=== PATIENT | female | born 1965 | race Caucasian/White ===

== ENCOUNTER → 2019-06-22 | Outpatient (CLI) | payer BC ==
[~2019-06-22] MED LIST: Flovent Diskus50 MCG IH; LEVSOD88 PO; LORA10 PO; METO25ER PO; Omeprazole20 M1; SERT25 PO; TRIHYD253B PO
[2019-06-24 15:07] LABS: HPV 16 Negative (Negative); HPV 18 Negative (Negative); HPV OTHER HR TYPES Negative (Negative)
== END | disposition home or self-care (01) ==
LOC: LAB SHORT 11:42 → LAB 11:42
PROVIDERS: Obstetrics & Gynecology
DX: Z01.419 Encounter for gynecological examination (general) (routine) without abnormal findings (principal)
CPT/HCPCS: 87624; G0123

== ENCOUNTER → 2020-01-26 | Outpatient (CLI) | payer BC | END | disposition home or self-care (01) | LOC: PLD 11:18 → LAB SHORT 11:18 | DX: C44.311 Basal cell carcinoma of skin of nose (principal); L73.8 Other specified follicular disorders | CPT/HCPCS: 88305 ==

== ENCOUNTER → 2020-04-16 | Outpatient (CLI) | payer BC | END | disposition home or self-care (01) | LOC: LAB SHORT 12:30 → LAB 12:30 | DX: L08.0 Pyoderma (principal) | CPT/HCPCS: 87070; 87205 ==

== ENCOUNTER → 2020-10-29 | Outpatient (CLI) | payer BC | END | disposition home or self-care (01) | LOC: LAB SHORT 12:12 → PLD 12:12 | DX: D48.5 Neoplasm of uncertain behavior of skin (principal) | CPT/HCPCS: 88305 ==

== ENCOUNTER 2023-01-30 07:20 | Day surgery (SDC) | payer OTHER ==
[~2023-01-30] VITALS: Ht 167.6 cm; Wt 97.4 kg
[2023-01-30] MEDS ORDERED: PANT20 (07:38)
[2023-01-30] MEDS ORDERED: ESCI10 (07:38)
[2023-01-30] MEDS ORDERED: ROSU5 (07:38)
[2023-01-30] MEDS ORDERED: FINASTERIDE1 MG (07:39)
[2023-01-30] MEDS ORDERED: METF500 (07:39)
[2023-01-30] MEDS ORDERED: Naltrexone HCl50 MG (07:40)
== END 2023-01-30 09:29 | disposition home or self-care (01) ==
LOC: ORSCSDS 07:20
PROVIDERS: Internal Medicine Gastroenterology
PROC: 0DBL8ZX Excision of Transverse Colon, Via Natural or Artificial Opening Endoscopic, Diagnostic (ICD-10-PCS; principal; 2023-01-30 08:30)
DX: Z12.11 Encounter for screening for malignant neoplasm of colon (principal); Z86.010 Personal history of colon polyps; Z83.71 Family history of colonic polyps; D12.3 Benign neoplasm of transverse colon; E78.5 Hyperlipidemia, unspecified; I10 Essential (primary) hypertension; E03.9 Hypothyroidism, unspecified; Z79.899 Other long term (current) drug therapy
CPT/HCPCS: 88305; C1889; J2250; J2704; J7120

== ENCOUNTER → 2024-09-06 | Outpatient (CLI) | payer OTHER ==
[~2024-09-06] MED LIST changes: +ESCI10; +FINASTERIDE1 MG; +METF500; +Naltrexone HCl50 MG; +PANT20; +ROSU5
[2024-09-14 07:15] LABS: HPV HIGH RISK BY TMA Not Detected; HPV SOURCE Cervical/Vag
== END ==
LOC: LAB 15:57 → LAB SHORT 15:57
PROVIDERS: Obstetrics & Gynecology
DX: Z01.419 Encounter for gynecological examination (general) (routine) without abnormal findings (principal)
CPT/HCPCS: 87624; G0123